=== PATIENT | female | born 1995 | race Hispanic/Latino ===

== ENCOUNTER 2017-04-12 02:00 | Inpatient (IN) | payer OTHER ==
[~2017-04-12] VITALS: Ht 154.9 cm; Wt 56.2 kg
[~2017-04-12 02:00] MED LIST: CLOB15CR3 TOP; ONDA8TAB10 PO; PNV91TAB3 PO; PROC-4 PO
[2017-04-12] MEDS ORDERED: Sodium Chloride LOK Flush 10 mL Syringe IVFLUSH PRN (03:15)
[2017-04-12] MEDS ORDERED: Hemorrhage Kit, Post Partum XX ONE ×2 (03:15→23:40)
[2017-04-12] MEDS ORDERED: Methylergonovine 0.2 mg/mL Inj IM PRN ×2 (03:15→23:40)
[2017-04-12] MEDS ORDERED: Carboprost 250 mCg/mL Inj IM PRN ×2 (03:15→23:40)
[2017-04-12] MEDS ORDERED: Ondansetron 2 mg/mL 2 mL Inj IVPUSH PRN ×2 (03:15→05:35)
[2017-04-12] MEDS ORDERED: Oxytocin 10 Unit/mL Inj IM PRN ×2 (03:15→23:40)
[2017-04-12] MEDS ORDERED: Oxytocin 30 Units/500 mL LR 30 UNITS in IV Premix 1 EACH IV PRN ×2 (03:15→23:40)
[2017-04-12] MEDS ORDERED: fentaNYL-PF 50 mCg/mL 2 mL Inj IVPUSH PRN (03:15)
[2017-04-12 03:43] LABS: Mean Corpuscular Hemoglobin 26.7 pg (27.0-35.0); Mean Corpuscular Volume 83.5 fL (81-100)
[2017-04-12] MEDS: Lactated Ringer's 1,000 ML IV PRN ×2 (03:44→04:38)
[2017-04-12] MEDS ORDERED: fentaNYL 2 mCg/mL-Bupivicaine 0.125% 100 mL Premix EPIDURAL ONE (04:04)
[2017-04-12] MEDS ORDERED: Lactated Ringer's 500 ML IV ONE (05:32)
[2017-04-12] MEDS ORDERED: Atropine 1 mg/10 mL (Code) Syringe IVPUSH PRN (05:35)
[2017-04-12] MEDS ORDERED: fentaNYL 2 mCg/mL-Bupiv 0.125% 100 ML EPIDURAL SCH (05:35)
[2017-04-12] MEDS ORDERED: EPHEDrine Sulfate 50 mg/mL Inj IVPUSH PRN (05:35)
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
--- NOTE | 2017-04-12 05:57 | HP ---
[address] [address] HISTORY AND PHYSICAL PATIENT: SUZANNE PINEDO : 1995 MR#: [id number] ADMIT: 04/12/2017 JOB ID: [id number] CHIEF COMPLAINT: Contractions. HISTORY OF PRESENT ILLNESS: This is a 22-year-old, G1, P0, at 38 + 2 weeks gestational age with estimated date of confinement of April 24, 2017 who is admitted in early labor. Her is complicated by hyperemesis required Zofran pump early in as well as a complicated and poor social situation and varicella nonimmune status. The patient was seen yesterday morning in our triage complaining of regular uterine contractions. She was noted to be 1.5 cm dilated, gina very uncomfortably so she was given medication to help with therapeutic rest using morphine and Phenergan and afterwards she was discharged home and her cervix is unchanged. In the harvest worker fruit hours of the . She presented again today complaining of regular uterine contractions. She was then noted to be 3 cm dilated, gina irregularly and uncomfortably so she ambulated through the hallway and her cervix was noted to have changed from 3-4 cm dilated. At which point in time, she was then admitted for early labor. Please see the clinic H and P for further information regarding her medical and surgical history. The remainder of her course was uncomplicated and her full H and P is updated in the paper chart. Medications in this included Zofran as needed at one point requiring a Zofran pump as well as vitamins and multiple other antiemetics. ALLERGIES: LATEX. LABORATORY DATA: Shows a blood type of O positive, antibody screen negative, rubella immune, varicella nonimmune, hep B surface antigen negative, RPR nonreactive, HIV negative, and GBS negative. OBJECTIVE: At the time of admission her blood pressure is 112/70. Her heart rate is 78. Her temperature is 36.1, respiratory rate is 20. General, she is awake, alert, and oriented. She is uncomfortable with contractions. Her abdomen is soft, nontender, nondistended with size appropriate for dates. Her extremities show no tenderness or edema. heart tones show 130s baseline, moderate variability with accelerations present up to the 150s and mild variable deceleration. She is gina irregularly every 2 to 7 minutes. Her cervix was checked by the nurse and noted to be 4 cm dilated, 80% effaced, and -2 station. ASSESSMENT AND PLAN: This is a 22-year-old, G1, P0, at 38 + 2 weeks gestation with EDC of April 24, 2017 being admitted in early labor making cervical change. complicated by poor social situation without good support and hyperemesis throughout the . At this point in time, we will continue expectant management. Await continued progression in labor. She is GBS negative and no antibiotics are indicated. She is Rh positive and rubella immune. Varicella vaccine will be ordered . Social Work will be consulted due to the patient's poor social situation.
[2017-04-12] MEDS ORDERED: Oxytocin 30 Units/500 mL LR Premix IV SCH (09:30)
[2017-04-12] MEDS: Lactated Ringer's 1,000 ML IV SCH ×4 (10:31→23:38)
[2017-04-12] MEDS ORDERED: Acetaminophen IV 1,000 MG in IV Premix 1 EACH IV ONE (17:00)
[2017-04-12] MEDS: Gentamicin Inj 80 MG in Dextrose 5% 50 ML IV SCH (19:03)
[2017-04-12] MEDS ORDERED: DEXTROSE 5% IV ONE (19:26)
[2017-04-12] MEDS ORDERED: 0.9% Sodium Chloride 0 ML IV ONE (19:27)
[2017-04-12] MEDS ORDERED: Ampicillin 2,000 mg Inj ONE (19:27)
[2017-04-12] MEDS: Ampicillin 2,000 mg/100 mL NS Minibag Plus IV SCH ×2 (19:30)
[2017-04-12] MEDS ORDERED: Benzocaine (Dermoplast) 20% 60 Gm Spray TOPICAL PRN (23:40)
[2017-04-12] MEDS ORDERED: Witch Hazel-Glycerin Pads TOPICAL PRN (23:40)
[2017-04-12] MEDS ORDERED: LANOlin HPA 7 Gm Ointment TOPICAL PRN (23:40)
[2017-04-12] MEDS ORDERED: oxyCODONE-Acetamin 5-325 mg Tablet PO PRN (23:40)
--- NOTE | 2017-04-13 00:30 | OP ---
[address] [address] OPERATIVE REPORT PATIENT: SUZANNE PINEDO : 1995 MR#: [id number] ADMIT: 04/12/2017 JOB ID: [id number] DATE OF SURGERY: 04/12/2017 SURGEON: PREOPERATIVE DIAGNOSIS(ES): A 22-year-old, 2, para 0, at 38 weeks and 2 days, in labor. POSTOPERATIVE DIAGNOSIS(ES): 1. A 22-year-old, 2, para 1, status post spontaneous vaginal delivery at 38 weeks and 2 days. 2. Chorioamnionitis. DELIVERY SUMMARY: The patient is a 22-year-old, 1, para 0, who was admitted for delivery on April 12, 2017, when she presented with contractions in the morning. The patient was examined and was 3 cm dilated, subsequently in a couple hours there was cervical change to 4 cm. Patient was admitted for delivery. laboratories were unremarkable. She is blood group and type O-positive, antibody screen negative. Rubella immune. Varicella nonimmune, group B strep negative. The patient had artificial rupture of membranes at 12:34 p.m. At that point, she was 6 cm dilated, 80% effaced, station -1. Pitocin was started for augmentation of labor. The patient had occasional variable decelerations. She progressed to 9 cm at 6 p.m. April 12, 2017, and she developed maternal fever of 38.5 with tachycardia. Antibiotic gentamicin and ampicillin were given for chorioamnionitis. The fever subsided within two hours. The patient progressed to full dilation at 7:08 p.m. She was laboring down and at 9 o'clock she started pushing. After two hours of pushing, at 11:09 p.m., the patient underwent spontaneous vaginal delivery, delivered a male with Apgars 7 at one minute and 9 at five minutes. She had initially a possible posterior presentation that was reduced and shortly after that she underwent vaginal delivery. She had second-degree midline vaginal laceration with extension to the middle vagina and perineum that was repaired with 3-0 Vicryl. The placenta was delivered at 11:25 p.m., was found to be intact with three-vessel cord. Placenta was sent to Pathology. Estimated blood loss was 300 mL.
[2017-04-13] MEDS: Ampicillin 2,000 mg/100 mL NS Minibag Plus IV SCH ×2 (01:30)
[2017-04-13] MEDS: Gentamicin Inj 80 MG in Dextrose 5% 50 ML IV SCH (01:51)
[2017-04-13] MEDS: Lactated Ringer's 1,000 ML IV SCH ×2 (05:32→07:38)
[2017-04-13 06:48] LABS: Mean Corpuscular Hemoglobin 26.8 pg (27.0-35.0); Mean Corpuscular Volume 81.6 fL (81-100)
--- NOTE | 2017-04-13 13:36 | PROG NOTE ---
[address] [address] PROGRESS NOTE PATIENT: SUZANNE PINEDO : 1995 MR#: [id number] ADMIT: 04/12/2017 JOB ID: [id number] DATE: 04/13/2017 SUBJECTIVE: The patient is doing well this morning. She is day number one following a vaginal delivery. Her pain was well controlled. She is tolerating a regular diet. She is voiding without difficulty and ambulating well on her own. She is working on breast feeding and is not having any issues with this. She has no complaints this morning. She states her lochia is minimal. OBJECTIVE: She is afebrile. Her vital signs are stable. In general, she is awake, alert, and oriented. She is in no acute distress lying in her bed. Her abdomen is soft. It is appropriately tender. It is nondistended. Her extremities show no tenderness or edema. LABORATORY DATA: Her white count this morning is 16.2, hemoglobin is 8.6, her platelet count is 259. ASSESSMENT AND PLAN: 1. This is a 22-year-old, 1, now para 1-0-0-1 female, day number one following a spontaneous vaginal delivery. She is doing well this morning. She is meeting all goals. However, this is her first , and it was complicated by poor social situation for which Social Work is following. Due to her late timing of delivery, she will be kept until day two for further observation and monitoring. Social Work has consulted and is following along, and we are awaiting visitation with them . She is anemic following delivery with a hemoglobin of 8.6, and iron will be started three times daily. She is breast feeding without difficulty. She will continue receiving support for this. Her blood type is O positive. She is rubella immune. She is varicella nonimmune and will receive her varicella vaccination and booster shots at her visit. All questions and concerns of the patient were answered. Will plan to discharge her home tomorrow. Continue to monitor her throughout the day today with plan for discharge home tomorrow morning. 2. Chorioamnionitis. The patient did have elevated maternal fever and tachycardia in delivery. She did receive ampicillin and gentamicin while in Labor and Delivery. These were discontinued . She has been afebrile since that time. Her white count is elevated somewhat likely related to this as well as just her recent status. She will continue to be monitored and will plan to discharge her home tomorrow if she remains afebrile. ANN
[2017-04-14 05:57] LABS: BASOPHILS % (AUTO) 0.2 % (0-3); EOSINOPHILS % (AUTO) 2.1 % (0-5); MONOCYTES % (AUTO) 5.7 % (4-12); Mean Corpuscular Hemoglobin 26.9 pg (27.0-35.0); NEUTROPHILS % (AUTO) 72.8 % (40-74); Platelet Count 198 bil/L (150-400)
--- NOTE | 2017-04-14 15:40 | PCM.DIMED ---
Discharge Instructions Date of Service April 14, 2017 Dates of Hospitalization April 12, 2017 at 03:10 Diet Discharge Diet: No restrictions Activity Discharge Activity: No restrictions Call your provider Call your provider for: Fever or Chills, Shortness of breath, Bleeding, Chest pain, Vomitting, Excessive diarrhea, Weakness (unilateral) Patient Instructions Follow-up with PCP in: 2 weeks Shayne Copeland MD April 14, 2017 15:40
[2017-04-14] MEDS ORDERED: DOCU-41 PO (15:44)
[2017-04-14] MEDS ORDERED: OXYC1TAB24 PO (15:44)
[2017-04-14] MEDS ORDERED: FERR-74 PO (15:44)
[2017-04-14] MEDS ORDERED: IBUP800T28 PO (15:44)
[2017-04-14 17:52] VITALS: BP 118/72; PULSE 87; RESP 16
--- NOTE | 2017-04-15 03:22 | DIS ---
[address] [address] DISCHARGE SUMMARY PATIENT: SUZANNE PINEDO : 1995 MR#: [id number] ADMIT: 04/12/2017 JOB ID: [id number] DIS: 04/14/2017 DATE OF ADMISSION: 04/12/2017 DATE OF DISCHARGE: 04/14/2017 ADMITTING DIAGNOSIS: A 22-year-old, 2, para 0, at 38 weeks and 2 days in active labor. DISCHARGE DIAGNOSIS: 1. A 22-year-old, 2, para 1, status post spontaneous vaginal delivery at term. 2. Chorioamnionitis. HOSPITAL COURSE: The patient is a 22-year-old, 1, para 0, who was admitted to labor and delivery on April 12, 2017 when she presented with contractions early in the morning. She was examined, was 3 cm dilated, re-examined in 2 hours, the cervix changed to 4 cm. The patient was admitted. laboratories where checked. She was rubella immune, varicella nonimmune, blood group and type O positive, group B strep negative. The patient initially was gina well, progressed to 6 cm, station -1. Then contractions spaced out and Pitocin was started for augmentation of labor. In the evening of April 12, 2017 at around 6 p.m., she developed tachycardia and maternal fever of 38.5. Gentamicin and ampicillin were given for chorioamnionitis. The fever subsided. She progressed to full dilation and underwent spontaneous vaginal delivery at 11 p.m., delivered male with Apgars 7 at one minute and 9 at five minutes. She had second degree midline vaginal laceration with extension to the mid vagina that was repaired with 3-0 Vicryl. On day one, April 13, 2017, the patient was doing well, ambulating, trying to breast feed. Ice packs were provided to perineum and pain medications were given as well. The patient did not have any vaginal bleeding or abnormal discharge. The fundus was firm. On day two, April 14, 2017, she was and ambulating. She still has been using ice packs to the perineum, Motrin was enough for the pain relief. Vitals stable and the uterine fundus was at the level of the umbilicus and firm. The patient was discharged home on post day two, April 14, 2017, in stable condition with all discharge criteria met. DISCHARGE MEDICATIONS: She was given discharge medications Includin. Motrin 800 mg p.o. t.i.d. p.r.n. 2. Percocet 5/325 mg p.o. t.i.d. p.r.n. for breakthrough pain. 3. Colace 100 mg p.o. b.i.d. FOLLOWUP: The follow up visit in the clinic is scheduled in six weeks. ANN
--- NOTE | 2017-04-18 15:07 | PATH ---
SURGICAL PATHOLOGY Attending Physician:Shayne Copeland MD CASE STATUS: Signed Out PATIENT NAME: SZUANNE PINEDO PID: [id number] : 1995 DATE COLLECTED:04/13/2017 13:38 SPECIMEN: Placenta CLINICAL HISTORY: IUP 39+ WEEKS CHORIOAMNIONITIS 1. PLACENTA FINAL DIAGNOSIS: Kinney Placenta: Placenta parenchyma. Weight: 341 grams. Chorionic villus maturation is slightly less mature than for stated gestational age. Mild inter and intervillous fibrin is present. No villitis identified. Umbilical Cord: Length 5.6 cm. Three vessels present. Attached 6.5 cm from the placental disc margin. No funisitis identified. Membranes: Ruptured 6.5 cm from the placental disc margin. Chorioamnionitis present. ICD10: 041.1 GROSS DESCRIPTION: The specimen is received in formalin, labeled with the patient's name and consists of an intact placenta and includes placental disc (341 g, 16.5 x 14.5 x 2.5 cm), umbilical cord (length-5.6 cm, diameter-1.2 x 0.5 cm) and membranes. The membranes are ruptured 6.5 cm from the free edge of the placenta and are semi-translucent. The umbilical cord is attached 6.5 cm from the edge of the placenta and contains 3 vessels. The surface is smooth and shiny with no evidence of meconium. The maternal surface is dark maroon with normal cotyledon formation. The placental disc is spongy with no hematomas, infarcts, nodules, masses, or lesions. Section code: (A) edge of placenta with membranes; (B) umbilical cord; (C-F) placenta, 4 full thickness sections. 04/13/17 ICD-9 CODES: CPT CODES: 1: 96695 Electronically Signed Out Dang Everett MD [facility] Pathology [facility] [address], [place] [address] Technical component performed at [facility], [facility] [address], [place], [address]
== END 2017-04-14 18:30 | disposition home or self-care (01) | DRG 560 ==
LOC: FBCO 02:00 → FBC 03:10
PROVIDERS: ADMIT Legal Medicine; ATTEND Legal Medicine
PROC: 10E0XZZ Delivery of Products of Conception, External Approach (ICD-10-PCS; principal; 2017-04-12)
PROC: 0KQM0ZZ Repair Perineum Muscle, Open Approach (ICD-10-PCS; 2017-04-12)
PROC: 10907ZC Drainage of Amniotic Fluid, Therapeutic from Products of Conception, Via Natural or Artificial Opening (ICD-10-PCS; 2017-04-12)
DX: O41.1230 Chorioamnionitis, third trimester, not applicable or unspecified (principal); O75.2 Pyrexia during labor, not elsewhere classified; O70.1 Second degree perineal laceration during delivery; Z3A.38 38 weeks gestation of pregnancy; Z37.0 Single live birth; O69.81X0 Labor and delivery complicated by cord around neck, without compression, not applicable or unspecified; O77.0 Labor and delivery complicated by meconium in amniotic fluid

== ENCOUNTER 2017-08-19 21:54 | Emergency (ER) | payer OTHER ==
[~2017-08-19 21:54] MED LIST changes: -CLOB15CR3 TOP; +DOCU-41 PO; +FERR-74 PO; +IBUP800T28 PO; -ONDA8TAB10 PO; +OXYC1TAB24 PO; -PROC-4 PO
[2017-08-19] MEDS ORDERED: diphenhydrAMINE 25 mg Capsule PO ONE (22:34)
[2017-08-19] MEDS ORDERED: Dexamethasone 20 mg/2 mL Oral Solution PO ONE (23:30)
[2017-08-19] MEDS ORDERED: LORA10CA PO (23:33)
[2017-08-19] MEDS ORDERED: PRE20 PO (23:33)
[2017-08-19] MEDS ORDERED: FAMO20T PO (23:33)
== END 2017-08-19 23:50 | disposition home or self-care (01) ==
LOC: SED 21:54
DX: L50.9 Urticaria, unspecified (principal)